=== PATIENT | female | born 1950 | race Caucasian/White ===

== ENCOUNTER 2025-05-30 07:53 | Observation (INO) | payer BC ==
[~2025-05-30] VITALS: Ht 157.5 cm; Wt 53.5 kg
--- NOTE | 2025-05-30 08:01 | ELECTROCARDIOGRAPH REPORT ---
[facility] Test Date: 2025-05-30 Test Time: 07:59:13 Pat Name: FAINA CAPELLAN Department: [facility] Patient ID: [id number] Room: Gender: F Radiology Interventional Physician: : [id number] Requested By: SEBASTIEN MCDONALD Order Number: [id number] Reading MD: Measurements Intervals [place] Rate: 109 P: -18 DC: 169 QRS: -23 QRSD: 95 T: 112 QT: 353 QTc: 476 Interpretive Statements Sinus tachycardia LAE, consider biatrial enlargement LVH with secondary repolarization abnormality Inferior infarct, old Please click the below link to view image of tracing.
[2025-05-30 08:11] LABS: MEAN PLATELET VOLUME 8.8 FL (7.4-10.4); RED CELL DISTRIBUTION WIDTH 13.2 % (11.5-14.5)
[2025-05-30 08:35] LABS: CREATININE 0.77 MG/DL (0.40-0.90); PRO BRAIN NATRIURETIC PEPTIDE 440 PG/ML (0-125); TOTAL CARBON DIOXIDE 26.7 MMOL/L (24-32); eCRCL 51 ML/MIN; eGFR 73 ML/MIN
--- NOTE | 2025-05-30 08:42 | RADIOLOGY REPORT ---
CHEST RADIOGRAPH INDICATION: CP TECHNIQUE: Single frontal view of the chest was obtained COMPARISON: None FINDINGS: Lines and Tubes: None Lungs: Clear Pleura: No effusion. No pneumothorax. Cardiomediastinal contours: Unremarkable Bones: Unremarkable IMPRESSION: No acute disease.
--- NOTE | 2025-05-30 09:23 | Physician Documentation ---
History of Present Illness ~ Chief Complaint: Rapid Heartbeat Stated Complaint: RAPID HEART RATE/CHEST BURNING Time Seen by MD: 08:49 HPI 74-year-old female presenting with rapid heart rate. She states that her symptoms started around midnight last night. For dinner last night she had some salad and some white wine. She states that she has a history of fast heart rates after she drinks red wine however she stopped drinking red wine. This has never occurred before with white wine. Additionally she states that she has had some burning in her chest but denies any specific pressure or pain. Denies any nausea, vomiting, fever, chills or any other associated symptoms. Medication Reconciliation Allergies: Coded Allergies: No Known Allergies (Unverified , 05/30/25) Past Medical History Past Medical History: Hypertension Review of Systems All Other Systems at this time: Reviewed and Negative Physical Exam Vital Signs: Temperature: 98.7, Source: Temporal, Heart Rate: 109, Respiratory Rate: 18, BP: 222/80, Pulse Oximetry: 99, Weight: 53.500 Oxygen Flow Rate: 0 Physical Exam I have reviewed the triage vitals. CONST: Well developed and well nourished. In no acute distress HENT: Head Atraumatic EYES: Pupils are equal, round and reactive to light. Normal conjunctiva NECK: Normal range of motion. Supple. CARDIO: Tachycardic, regular rhythm. No murmurs, rubs, or gallops. S1, S2. PULM/CHEST: No respiratory distress. Lungs clear to auscultation. No wheeze ABD: Soft and nontender. Nondistended. Bowel sounds normal. No guarding. : Exam deferred MSK: No edema. No deformity. NEURO: Alert and oriented to person, place and time. Moving all extremities SKIN: Warm and dry. PSYCH: Normal mood and affect. Good eye contact. Progress Results/Orders Results/Orders Orders - SEBASTIEN MCDONALD MD Chest,Single View (05/30/25 07:55) Monitor (05/30/25 07:55) Saline Lock (05/30/25 07:55) Oxygen (05/30/25 07:55) Normal Saline 1000ml (0.9% Sodium Chlori (05/30/25 10:55) Page Hospitalist (05/30/25 11:31) Fill Out Med Reconciliation (05/30/25 11:31) Completed Orders - SEBASTIEN MCDONALD MD Chest,Single View (05/30/25 07:55) Cbc/Diff (05/30/25 07:55) BMP (05/30/25 07:55) PBNP (05/30/25 07:55) Electrocardiogram (05/30/25 07:55) Hs Troponin I W Calculations (05/30/25 07:55) Hs Troponin I W Calculations (05/30/25 09:55) Hs Troponin I W Calculations (05/30/25 10:55) D-Dimer (05/30/25 09:17) MG (05/30/25 09:17) Procalcitonin (05/30/25 09:17) Metoprolol Tartrate Tablet (Lopressor Ta (05/30/25 09:20) Medications Received in ER Medications (Trade) Dose Ordered Sig/Shirley Route PRN Reason Start Time Stop Time Status Last Admin Dose Admin (Lopressor tablet) 50 mg ONCE ONCE PO 05/30/25 09:20 05/30/25 09:28 DC 05/30/25 09:36 50 MG Vital Signs 05/30/25 05/30/25 05/30/25 05/30/25 08:03 09:36 09:37 09:39 Temp 98.7 98.7 Pulse 109 106 107 Resp 18 12 13 B/P (MAP) 222/80 190/97 (128) Pulse Ox 99 99 O2 Flow Rate 0 0 Laboratory Tests Test 05/30/25 08:00 05/30/25 09:26 05/30/25 10:56 White Blood Count 6.5 Red Blood Count 4.42 Hemoglobin 14.3 Hematocrit 42.8 Mean Corpuscular Volume 96.9 Mean Corpuscular Hemoglobin 32.5 H Mean Corpuscular Hemoglobin Concent 33.5 Red Cell Distribution Width 13.2 Platelet Count 269 Mean Platelet Volume 8.8 Neutrophils (%) (Auto) 67.3 Lymphocytes (%) (Auto) 24.0 Monocytes (%) (Auto) 7.6 Eosinophils (%) (Auto) 0.2 Basophils (%) (Auto) 0.9 Neutrophils # (Auto) 4.4 Lymphocytes # (Auto) 1.6 Monocytes # (Auto) 0.5 Eosinophils # (Auto) 0.0 Basophils # (Auto) 0.1 CBC Comment Sodium Level 133 L Potassium Level 3.7 Chloride Level 98 L Carbon Dioxide Level 26.7 Anion Gap 8 Blood Urea Nitrogen 14 Creatinine 0.77 Estimated GFR/1.73 m2 73 BUN/Creatinine Ratio 18.2 Glucose Level 117 H Calcium Level 8.9 Troponin I High Sensitivity 11 13 17 Pro-B-Type Natriuretic Peptide 440 H Albumin 4.2 Chemistry Comments D-Dimer 0.31 D-Dimer Comment Magnesium Level 1.9 Troponin I High Sens Percent Delta 18 30 Troponin I Hi Sens Absolute Change 2 4 Procalcitonin < 0.05 EKG/XRAY/CT/US/VASC/MRI EKG : Additional Comment EKG as interpreted by ED MD indicating sinus tachycardia at a rate of 109 beats per minute, no ischemia, normal axis Chest X-Ray : Additional Comments ED physician read: Normal cardiac silhouette, no infiltrates, no pneumothorax, normal bony structures, no acute airspace disease CHEST RADIOGRAPH INDICATION: CP TECHNIQUE: Single frontal view of the chest was obtained COMPARISON: None FINDINGS: Lines and Tubes: None Lungs: Clear Pleura: No effusion. No pneumothorax. Cardiomediastinal contours: Unremarkable Bones: Unremarkable IMPRESSION: No acute disease. Heart Score: Heart Score Response (Comments) Value History Moderate Suspicious 1 EKG Repolarization Disturb 1 Age >65 2 Risk Factors 1 or 2 risk factors 1 Troponin Normal limit 0 Total 5 Medical Decision Making Differential Dx:Considerations: Include: angina / MN, atrial dysrhythmia, atrial fibrillation, atrial flutter, MAT, PACs, PSVT, sinus tachycardia, WPW, 1st degree AV block, 2nd degree AVB-type 1, 2nd degree AVB-type 2, 3rd degree AV block, PVCs, torsades de pointes, ventricular fibrillation, ventricular tachycardia Differential Dx:Considerations: Include anxiety/panic attack, Include electrolyte disorder, Include heart failure, Include pulmonary embolus Additional Information 74-year-old female presenting with a rapid heartbeat-sinus tachycardia, as well as a very elevated blood pressure. Patient has a history of hypertension however her blood pressure was elevated into the 190s systolic. On initial presentation she was in the 220 systolic. This improved after the patient was given 50 mg of her home metoprolol. Her lab workup was grossly unremarkable. Two sets of troponins were unremarkable. Her EKG showed sinus tachycardia and was otherwise non concerning for ACS. Imaging was also done and reviewed. I d id consider the patient's chronic medical conditions as well as social determinants of health. Given that she has risk factors of age and hypertension and her heart score was a 5 and I believe that it is prudent to have her admitted for further cardiac workup and ACS rule out. Report called to admitting hospitalist team who accepted the patient. Departure Disposition: ADMITTED INPATIENT Admitted to Inpatient Unit: to hospitalist Admission Level of Care: Med/Surg with Tele Impression: Primary Impression: Tachycardia Additional Impression: Malignant hypertension Condition: Stable Referrals: NO PRIMARY CARE PROVIDER (PCP) SEBASTIEN MCDONALD MD May 30, 2025 09:23
[2025-05-30] MEDS: normal saline 1000ml 1,000 ML IV ONE (12:34)
[2025-05-30] MEDS: PERFLUTREN PROTEIN-A MICROSPHR (Optison) 0.22 MG/ML 3ML VIAL IV ONE (15:15)
[2025-05-30] MEDS ORDERED: mag hydrox/Alum hydrox/simeth 30ml oral suspension PO PRN (15:15)
[2025-05-30] MEDS ORDERED: potassium Cl 20 mEq SR tablet PO PRN ×2 (15:15)
[2025-05-30] MEDS ORDERED: magnesium sulf-water 2g/50mL 50 ML IV PRN (15:15)
[2025-05-30] MEDS ORDERED: magnesium Cl slow-release 64mg tablet PO PRN (15:15)
[2025-05-30] MEDS ORDERED: ondansetron/PF 4mg/2ml inj IV PRN (15:15)
[2025-05-30] MEDS ORDERED: magnesium sulf-water 4G/100mL 100 ML IV PRN (15:15)
[2025-05-30] MEDS ORDERED: potassium Cl 40MEQ/1/2NS 520ml 520 ML IV PRN (15:15)
[2025-05-30] MEDS ORDERED: magnesium hydroxide 30ml (MOM) UD suspension PO PRN (15:15)
[2025-05-30] MEDS ORDERED: HYDROcodone/acetaminophen 5mg/325mg tablet PO PRN (15:15)
[2025-05-30] MEDS ORDERED: METO-384 PO (15:42)
[2025-05-30 17:54] VITALS: BP 216/75; PULSE 72; RESP 18; TEMP 97.9; O2SAT 98
[2025-05-30 18:00] VITALS: BP 216/75; PULSE 72; RESP 18; TEMP 97.9; O2SAT 18
--- NOTE | 2025-05-30 18:00 | HISTORY AND PHYSICAL-Residence ---
History & Physical Providers to CC Resident Creating Document: LAYHCENSHERRI PENA ~ History of Present Illness Reason for Admit\Complaint: Tachycardia History of Present Illness This is a 74-year-old female patient with a past medical history of hypertension and anxiety who presented to the ER for palpitation and retrosternal burning sensation since yesterday evening. She reports occasional palpitations after drinking red wine for which she was previously started on metoprolol but it was never persistent as it is now. Reports drinking white wine every other day, which does not usually cause palpitations. She also reports retrosternal burning sensation which is normal for her, however she denies chest pain or shortness of breath at rest or exertion. Patient also denies nausea, vomiting, fever, excessive coffee consumption, energetic drinks or OTC stimulant. She reports recurrent anxiety and persistent palpitation. No other symptoms reported. Allergies: Coded Allergies: No Known Allergies (Unverified , 05/30/25) Home Medications Home Medications Active Reported Metoprolol Succinate 50 Mg Tab.sr.24h 1 Tab PO DAILY Past Medical History Past Medical History Hypertension GERD Generalized anxiety Rosacea Past Surgical History Surgical History Comment Cholecystectomy Past Social History Smoking: Non-Smoker Alcohol Use: Other (Drinks two glass of wine every other day) Drug Use: None Lives with: Spouse Lives In: Home Occupation: retired ROS All Other Systems: Reviewed and Negative Constitutional: Reports: no symptoms reported Eyes: Reports: no symptoms reported ENT: Reports: no symptoms reported Respiratory: Reports: no symptoms reported Cardiovascular: Reports: chest pain, palpitations Gastrointestinal: Reports: no symptoms reported Genitourinary: Reports: no symptoms reported Female Genitalia: Reports: no reported symptoms Neurological: Reports: no symptoms reported Musculoskeletal: Reports: no symptoms reported Integumentary: Reports: no symptoms reported Allergic/Immunologic: Reports: no symptoms reported Hematologic/Lymphatic: Reports: no symptoms reported Endocrine: Reports: no symptoms reported Psychiatric: Reports: anxiety Exam Vitals: Vital Signs Date Time Temp Pulse Resp B/P (MAP) Pulse Ox O2 Delivery O2 Flow Rate FiO2 05/30/25 17:15 98.7 67 14 186/78 (114) 98 05/30/25 14:37 0 General: Awake , alert, and oriented x4, no acute distress HEENT: Atraumatic, normocephalic, EOMI, anicteric sclera ; pink conjunctiva Neck: Trachea midline. Supple, full range of motion, no JVD Cardiac: Tachycardic. Regular rhythm, regular rate with no murmurs all over the precordium. Respiratory: Equal breath sounds bilaterally, no tachypnea, no wheezing ,rub or rales, Chest wall is symmetric and without deformity. Gastrointestinal: Abdomen symmetric, non-distended, soft, non-tender, normal bowel sounds x4 quadrant, normoactive, no hepatosplenomegaly Musculoskeletal: No pedal edema Neurological: Mental status exam: alert and consciousness, orientation, memory, speech - Cranial nerve test: Cranial nerves 2-12 intact - Motor system: Normal Nutrition, normal tone, Power 5/5, no involuntary movements - Sensory system: Intact - Reflex testing: Biceps, triceps and knee reflexes 2+ - Cerebellar: Normal Skin: Warm and dry Diagnostic Data Last Recorded Lab Results: 05/30/25 0800 05/30/25 1526 Diagnostic Data: Laboratory Tests Test 05/30/25 09:26 D-Dimer 0.31 MG/L FEU (0-0.50) D-Dimer Comment Advance Care Planning Advanced Care plannin - 30 Minutes (The advanced care directives were discussed, and the patient has requested a full code status.) Additional Plan Assessment 74-year-old female patient with past medical history of hypertension, GERD and anxiety who presented to the ER for persistent palpitation and burning chest pressure. 1. Sinus tachycardia - unclear cause, possibly related to alcohol consumption and/or anxiety Atypical chest pain, rule out ACS Uncontrolled hypertension Assessment - patient reports occasional palpitation after alcohol consumption - presented due to persistent palpitation and retrosternal burning pressure - EKG showed sinus tachycardia with lateral lead ST inversion - CXR: No acute pathology - negative troponins, BNP 440, D-dimer negative (Wells score 1.5 point - low risk) - BP 206/95mmHg, previously refused antihypertensive medication Plan - received metoprolol 50 mg in the ER - continue home metoprolol - started on lisinopril 10 mg daily - hydralazine 10 mg IV p.r.n. - ordered echocardiogram - we will consider Lexiscan if classic angina reported - Continuous telemetry monitoring 2. GERD Generalized anxiety - started on pantoprazole 40 mg p.o. daily - started on Ativan 0.5 mg for anxiety Code Status: Full code DVT prophylaxis: Enoxaparin Analgesia/sedation: Morphine/Pamplico Line/tube: PIV GI prophylaxis: Pantoprazole Nutrition: Regular diet Prognosis: Guarded Disposition: Admit to PCU/telemetry. Resident MD attestation The above note has been reviewed and supervised by a senior resident PGY2/PGY3 Patient was seen, examined and discussed with the attending physician Dr Schmitz Date of Service: May 30, 2025 Billing Provider: KARRIE SCHMITZ MD Common Visit Codes: 48800-[id number] INP/OBS CARE (HIGH) Secondary Visit Codes: [id number] CARE PLAN 30 MINUTES CHEN CHUN, RES May 30, 2025 18:00 KARRIE SCHMITZ MD Jun 01, 2025 07:10
[2025-05-30] MEDS: hydrALAZINE 20mg/ml inj. IV PRN (18:01)
[2025-05-30 18:10] VITALS: RESP 17; O2SAT 98
[2025-05-30] MEDS: K and/or MAG REPLACEMENT MC SCH (18:49)
[2025-05-30] MEDS: docusate sod 100mg capsule PO SCH (19:33)
[2025-05-30 20:00] VITALS: RESP 18; O2SAT 98
[2025-05-30 22:00] VITALS: BP 141/59; PULSE 82; RESP 15; TEMP 97.7; O2SAT 97
[2025-05-30 22:43] LABS: LEUKOCYTE ESTERASE ,URINE MODERATE (Neg); NITRITES, URINE NEGATIVE (Neg); OCCULT BLOOD,URINE NEGATIVE (Neg)
[2025-05-30 22:49] LABS: UA COLLECTION TYPE NON-SPECIFIED
[2025-05-30 22:58] LABS: SQUAMOUS EPITHELIAL CELL,UR NONE SEEN /LPF (FEW); WBC CLUMPS,URINE FEW /HPF (NEGATIVE)
[2025-05-31 02:00] VITALS: BP 129/56; PULSE 67; RESP 14; TEMP 97.6; O2SAT 98
[2025-05-31 06:00] VITALS: BP 105/48; PULSE 69; RESP 15; TEMP 98; O2SAT 99
[2025-05-31 07:19] LABS: MEAN PLATELET VOLUME 9.0 FL (7.4-10.4); RED CELL DISTRIBUTION WIDTH 13.5 % (11.5-14.5)
[2025-05-31 07:30] VITALS: RESP 15; O2SAT 99
[2025-05-31] MEDS: pantoprazole 40mg Tablet.DR PO SCH (07:30)
[2025-05-31] MEDS: enoxaparin 40mg/0.4ml syringe SUBCUT SCH (08:00)
[2025-05-31 08:06] VITALS: BP_SYST 187; PULSE 72
[2025-05-31 08:10] LABS: CHOL/HDL RATIO 3.3 (0.00-4.99); CREATININE 0.83 MG/DL (0.40-0.90); LDL CHOLESTEROL 141 MG/DL (50-100); TOTAL CARBON DIOXIDE 25.2 MMOL/L (24-32); eCRCL 48 ML/MIN; eGFR 67 ML/MIN
[2025-05-31] MEDS ORDERED: PANT40TA54 PO (10:57)
[2025-05-31] MEDS ORDERED: LISI10TA27 PO (10:57)
--- NOTE | 2025-05-31 16:16 | DISCHARGE SUMMARY-Residence ---
Discharge Summary Providers to CC Resident Creating Document: CHEN CHUN RES ~ Discharge Summary Admission Diagnosis: Chest pain, R/O ACS Hospital Course DATE OF ADMISSION: 05/30/2025 DATE OF DISCHARGE: 05/31/2025 Laboratory Tests Test 05/30/25 08:00 05/30/25 09:26 05/30/25 10:56 05/30/25 15:26 White Blood Count 6.5 X10'3 Red Blood Count 4.42 X10'6 Hemoglobin 14.3 g/dl Hematocrit 42.8 % Mean Corpuscular Volume 96.9 FL Mean Corpuscular Hemoglobin 32.5 PG Mean Corpuscular Hemoglobin Concent 33.5 g/dL Red Cell Distribution Width 13.2 % Platelet Count 269 X10'3 Mean Platelet Volume 8.8 FL Neutrophils (%) (Auto) 67.3 % Lymphocytes (%) (Auto) 24.0 % Monocytes (%) (Auto) 7.6 % Eosinophils (%) (Auto) 0.2 % Basophils (%) (Auto) 0.9 % Neutrophils # (Auto) 4.4 X10'3 Lymphocytes # (Auto) 1.6 X10'3 Monocytes # (Auto) 0.5 X10'3 Eosinophils # (Auto) 0.0 X10'3 Basophils # (Auto) 0.1 X10'3 CBC Comment Sodium Level 133 MMOL/L Potassium Level 3.7 MMOL/L 3.6 MMOL/L Chloride Level 98 MMOL/L Carbon Dioxide Level 26.7 MMOL/L Anion Gap 8 Blood Urea Nitrogen 14 MG/DL Creatinine 0.77 MG/DL Estimated GFR/1.73 m2 73 ML/MIN BUN/Creatinine Ratio 18.2 Glucose Level 117 MG/DL Calcium Level 8.9 MG/DL Troponin I High Sensitivity 11 ng/L 13 ng/L 17 ng/L Pro-B-Type Natriuretic Peptide 440 PG/ML Albumin 4.2 G/DL Chemistry Comments D-Dimer 0.31 MG/L FEU D-Dimer Comment Magnesium Level 1.9 MG/DL 1.9 MG/DL Troponin I High Sens Percent Delta 18 % 30 % Troponin I Hi Sens Absolute Change 2 ng/L 4 ng/L Procalcitonin < 0.05 NG/ML Hemoglobin A1c 5.1 % Test 05/30/25 18:16 05/30/25 20:30 05/31/25 06:52 Troponin I High Sensitivity 16 ng/L Troponin I High Sens Percent Delta 5 % Troponin I Hi Sens Absolute Change -1 ng/L Urine Specimen Description Non-specified Urine Color Straw Urine Clarity Clear Urine pH 7.5 Urine Specific [place] 1.010 Urine Protein Negative mg/dl Urine Glucose (UA) Negative mg/dl Urine Ketones Trace mg/dl Urine Occult Blood Negative Urine Nitrite Negative Urine Bilirubin Negative Urine Urobilinogen 0.2 E.U/dL Urine Leukocyte Esterase Moderate Urine RBC None seen /HPF Urine WBC 0-4 /HPF Urine WBC Clumps Few /HPF Urine Squamous Epithelial Cells None seen /LPF Urine Bacteria Few /HPF Urine Culture Indicated Indicated Volume Urine Centrifuged 10 ml Urine Comment White Blood Count 5.6 X10'3 Red Blood Count 4.26 X10'6 Hemoglobin 13.9 g/dl Hematocrit 40.8 % Mean Corpuscular Volume 95.9 FL Mean Corpuscular Hemoglobin 32.6 PG Mean Corpuscular Hemoglobin Concent 34.0 g/dL Red Cell Distribution Width 13.5 % Platelet Count 265 X10'3 Mean Platelet Volume 9.0 FL Hematology Comments Sodium Level 135 MMOL/L Potassium Level 3.7 MMOL/L Chloride Level 101 MMOL/L Carbon Dioxide Level 25.2 MMOL/L Anion Gap 9 Blood Urea Nitrogen 11 MG/DL Creatinine 0.83 MG/DL Estimated GFR/1.73 m2 67 ML/MIN BUN/Creatinine Ratio 13.3 Glucose Level 99 MG/DL Calcium Level 8.9 MG/DL Magnesium Level 2.0 MG/DL Albumin 3.6 G/DL Triglycerides Level 152 MG/DL Cholesterol Level 226 MG/DL LDL Cholesterol 141 MG/DL HDL Cholesterol 69 MG/DL Cholesterol/HDL Ratio 3.3 Chemistry Comments Discharge Diagnosis\Comment: 1. Sinus tachycardia - unclear cause, possibly related to alcohol consumption and/or anxiety Atypical chest pain, ruled out ACS Uncontrolled hypertension 2. GERD Generalized anxiety Operations\Procedures: None Consultants: None Complications: None Condition on DC: Stable New Medications: Lisinopril (Lisinopril) 10 Mg Tablet 10 MG PO DAILY for 30 Days, #30 TAB Pantoprazole Sodium (Pantoprazole Sodium) 40 Mg Tablet.dr 40 MG PO BKF for 30 Days, #30 TAB.SR Continued Medications: Metoprolol Succinate (Metoprolol Succinate) 50 Mg Tab.sr.24h 1 TAB PO DAILY Discharge Summary: History of present illness This is a 74-year-old female patient with a past medical history of hypertension and anxiety who presented to the ER for palpitation and retrosternal burning sensation since yesterday evening. She reports occasional palpitations after drinking red wine for which she was previously started on metoprolol but it was never persistent as it is now. Reports drinking white wine every other day, which does not usually cause palpitations. She also reports retrosternal burning sensation which is normal for her, however she denies chest pain or shortness of breath at rest or exertion. Patient also denies nausea, vomiting, fever, excessive coffee consumption, energetic drinks or OTC stimulant. She reports recurrent anxiety and persistent palpitation. No other symptoms reported. Hospital course 74-year-old male patient was admitted for tachycardia and chest burning sensation. She has a recurrent palpitation but never as persistent as this time and almost always related to alcohol consumption. She had few glass of wine few hours her symptoms started which most likely happened to be her trigger. She was advised to avoid alcohol use, soon after admission her symptoms resolved and she remaining sinus rhythm between 60-80 beats per minute. Troponins were negative and echocardiogram was essentially normal. EKG showed signs of pos sible left ventricular hypertrophy with ST depressions in the lateral leads, however she did not have any anginal symptoms such as chest pain with exertion or dyspnea. She was offered a choice to the Lexiscan while inpatient but she opted to do it as outpatient. She is asymptomatic today and is stable to be discharged with outpatient follow-up. SHE IMPROVED EARLIER THAN EXPECTED. Chest x-ray No acute disease. Echocardiogram LEFT VENTRICLE Normal LV size and wall thickness. Overall systolic function is normal. LVEF is 60-65%. RIGHT VENTRICLE RV size and function appear normal. ATRIA LA size is normal. AORTIC VALVE Trileaflet AV appears mildly sclerotic without stenosis. Trace insufficiency by color and spectral flow Doppler. MITRAL VALVE Mild MV annular calcification without stenosis. Trace regurgitation by color and spectral flow Doppler. TRICUSPID VALVE TV appears structurally normal with trace regurgitation by color and spectral flow Doppler. PULMONIC VALVE Normal PV without stenosis, physiologic insufficiency by color and spectral flow Doppler. GREAT VESSELS Aortic root is normal in size. Ascending aorta is normal in size. PERICARDIUM Normal pericardium. No effusion. Discharge physical exam Awake , alert, and oriented x4, no acute distress HEENT: Atraumatic, normocephalic, EOMI, anicteric sclera ; pink conjunctiva Neck: Trachea midline. Supple, full range of motion, no JVD Cardiac: Tachycardic. Regular rhythm, regular rate with no murmurs all over the precordium. Respiratory: Equal breath sounds bilaterally, no tachypnea, no wheezing ,rub or rales, Chest wall is symmetric and without deformity. Gastrointestinal: Abdomen symmetric, non-distended, soft, non-tender, normal bowel sounds x4 quadrant, normoactive, no hepatosplenomegaly Musculoskeletal: No pedal edema Neurological: Mental status exam: alert and consciousness, orientation, memory, speech - Cranial nerve test: Cranial nerves 2-12 intact - Motor system: Normal Nutrition, normal tone, Power 5/5, no involuntary movements - Sensory system: Intact - Reflex testing: Biceps, triceps and knee reflexes 2+ - Cerebellar: Normal Skin: Warm and dry Discharge medications See below Discharge instructions Follow-up with your PCP in 1-2 weeks Take lisinopril 10mg daily Continue metoprolol Outpatient referal to cardiology for possible stress test, given EKG changes Monitor your blood pressure closely Come back in case of chest pain, shortness of breath, recurrent palpitation or any concerning symptoms *Problems/Diagnosis: (1) Hypertension (2) Tachycardia Status: Resolved Total Time Spent on D/C: > 30 Minutes Date of Service: May 31, 2025 Billing Provider: KARRIE SCHMITZ MD Common Visit Codes: 19220-VFU/OBS DISCH DAY >30min Problem Qualifiers (1) Hypertension: Hypertension type: primary hypertension Qualified Codes: I10 - Essential (primary) hypertension CHEN CHUN, RES May 31, 2025 16:16 KARRIE SCHMITZ MD Jun 01, 2025 07:11
--- NOTE | 2025-05-31 17:48 | CARDIOLOGY REPORT ---
APPROVED REPORT EXAM: Comprehensive 2D, Doppler, and color-flow Echocardiogram. Patient Location: 3[address] Blood Pressure: 105/48 mmHg Heart Rate: 80 bpm Rhythm: SINUS Indications ARRHYTHMIA PALPITATIONS In Store Marketer: none Previous echo: none 2D Dimensions LA Diam 4.8 cm IVSd 1.1 (0.7-1.1cm) LVDd 4.0 cm PWd 1.1 (0.7-1.1cm) IVSs 1.6 (0.8-1.2cm) LVDs 2.6 (2.5-4.0cm) PWs 1.5 (0.8-1.2cm) LVOT Diameter 1.94 (1.8-2.4cm) LVEF(%) 62.5 (>50%) Ao Asc Diam. 2.51 cm FS (%) 33.3 % SV 42.7 ml CO 2.9 L/min M-Mode Dimensions Left Atrium(MM) 3.91 (2.5-4.0cm) Aortic Root 2.59 (2.2-3.7cm) Aortic Cusp Exc 1.60 (1.5-2.0cm) Biplane 2D LA Volumes LA ESV Index 24.90 mL/m2 Aortic Valve AoV Peak Price. 184.1 cm/s AoV VTI 34.5 cm AO Peak GR. 13.6 mmHg AO Mean GR. 8 mmHg LVOT VTI 22.90 cm LVOT Peak Price. 101.9 cm/s LONI(VTI)/BSA 2.01 cm2/m2 LONI (VTI) 2.01 cm2 AV DI 0.66 % Mitral Valve MV E Velocity 93.4 cm/s MV Peak Gr. 4 mmHg MV DECEL TIME 220 ms MV A Velocity 136.1 cm/s MV PHT 64 ms E/A Ratio 0.7 MVA (PHT) 3.44 cm2 MV VMax 104.6 cm/s TDI Medial E' P. V 8.12 cm/s E/Medial E' 11.5 Pulmonary Vein S1 Velocity 79.0 cm/s D2 Velocity 41.9 cm/s PVa Velocity 29.2 cm/s PVa Duration 116 msec LEFT VENTRICLE Normal LV size and wall thickness. Overall systolic function is normal. Overall LVEF is 60-65%. RIGHT VENTRICLE RV size and function appear normal. ATRIA LA size is normal. AORTIC VALVE Trileaflet AV appears mildly sclerotic without stenosis. Trace insufficiency by color and spectral flow Doppler. MITRAL VALVE Mild MV annular calcification without stenosis. Trace regurgitation by color and spectral flow Doppler. TRICUSPID VALVE TV appears structurally normal with trace regurgitation by color and spectral flow Doppler. PULMONIC VALVE Normal PV without stenosis, physiologic insufficiency by color and spectral flow Doppler. GREAT VESSELS Aortic root is normal in size. Ascending aorta is normal in size. PERICARDIUM Normal pericardium. No effusion. Other Information Study Quality: Adequate Conclusion Overall LVEF is 60-65%. Normal LV size and wall thickness. Overall systolic function is normal. RV size and function appear normal. Trileaflet AV appears mildly sclerotic without stenosis. Trace insufficiency by color and spectral flow Doppler. Mild MV annular calcification without stenosis. Trace regurgitation by color and spectral flow Doppler. TV appears structurally normal with trace regurgitation by color and spectral flow Doppler. Normal PV without stenosis, physiologic insufficiency by color and spectral flow Doppler. Normal pericardium. No effusion.
== END 2025-05-31 10:31 | disposition home or self-care (01) ==
LOC: ER 07:54 → INTOOBSV 11:41 → ED HOLD 11:41 → PCU 3S 17:50 → UNDODISIN 05-31 11:20
PROVIDERS: ADMIT Internal Medicine; ATTEND Internal Medicine
DX: R00.0 Tachycardia, unspecified (principal); I10 Essential (primary) hypertension; K21.9 Gastro-esophageal reflux disease without esophagitis; F41.8 Other specified anxiety disorders; F41.1 Generalized anxiety disorder; R60.1 Generalized edema; Z79.899 Other long term (current) drug therapy; Z98.890 Other specified postprocedural states
CPT/HCPCS: 36415; 71045; 80048; 80061; 81001; 83036; 83735; 83880; 84132; 84145; 84484; 85025; 85027; 85379; 87081; 87088; 93005; 93306; 96361; 96374; 99285; G0378; J0360; J7030